=== PATIENT | male | born 1945 | race Two or more races ===

== ENCOUNTER 2016-10-23 01:25 | Inpatient (IN) | payer MEDICAID, SELFPAY ==
[2016-10-23] VITALS (24 sets, daily range): BP systolic 109–139; BP diastolic 52–92; Ht 171.4 cm; Wt 72.9 kg
[~2016-10-23] VITALS: Ht 171.4 cm; Wt 72.9 kg
[2016-10-23 02:16] LABS: BASOPHILS 0.1 % (0.0-2.0); EOSINOPHILS 0 % (0-7); HEMATOCRIT 29.1 % (42.0-54.0); HEMOGLOBIN 9.2 g/dL (13.5-17.5); IMMATURE GRANULOCYTES 0.3 % (0-5); MCH 28.2 pg (26.0-34.0); MCHC 31.6 g/dL (31.0-37.0); MCV 89.3 fL (80.0-100.0); MEAN PLATELET VOLUME 12.4 fL (7.4-10.4); MONOCYTES 5.1 % (2-11); NEUTROPHILS 81.5 % (40-80); PLATELET COUNT 138 10x3/uL (130-400); RBC 3.26 10x6/uL (4.20-6.10); RDW 12.8 % (11.5-14.5); WBC 10.5 10x3/uL (4.8-10.8)
[2016-10-23 02:20] LABS: APTT 20.8 SECONDS (22.8-39.4); INR 1.16 (0.85-1.17); PROTIME 14.6 SECONDS (11.6-15.0)
[2016-10-23 02:26] LABS: ALBUMIN 2.7 g/dL (3.4-5.0); ANION GAP 17.3 mmol/L (8-16); BILIRUBIN - TOTAL 0.5 mg/dL (0.2-1.3); CALCIUM 11.4 mg/dL (8.5-10.1); CARBON DIOXIDE 28.4 mmol/L (21.0-32.0); CREATININE - SERUM 8.6 mg/dL (0.6-1.3); POTASSIUM - SERUM 4.7 mmol/L (3.5-5.1); PROTEIN - SERUM 6.6 g/dL (6.4-8.2)
[2016-10-23 02:44] LABS: TROPONIN-I 0.133 ng/mL (0.000-0.060)
--- NOTE | 2016-10-23 04:15 | NUR ---
PT ARRIVED TO ICU. PT STATED IN FOR GI BLEEDING; VOMITING BLOOD. "FRIDAY GO THROUGH WITH COLONOSCOPY, WENT TO [place]. ATE A SPOON FULL OF BEANS; FELT FULL. WENT TO [place]. NEXT DAY WENT TO BREAKFAST ATE A COUPLE OF EGGS, FELT UPSET. STOMACH FELT LOCKED UP. FRIDAY SMALL BOWEL MOVEMENT; DRIP OF DIARRHEA. ABOUT NOON THREW UP; REGULAR THROW UP. DIDN'T WANT TO EAT AFTER. FRIDAY I TRIED TO EAT POTATO CHIP, FELT FULL. DRANK SPRITE AND STOMACH FELT UPSET; LAID DOWN. STOMACH FELT LIKE A TIGHT KNOT, WENT TO GET UP BECAUSE FELT LIKE I WAS GOING TO THROW UP; WHEN I STOOD UP I THREW UP; DARK COLORED LIKE COFFEE. VOMITED A LOT. WENT TO [facility]. 1 HOUR LATER LAYING BACK IN BED; RAISED UP FELT DIZZY; FELL HIT HEAD ON LEFT SIDE AND VOMITED BLOOD; A LOT OF BLOOD"
[2016-10-23] MEDS ORDERED: METOPROLOL TAR100 M1 PO (04:40)
[2016-10-23] MEDS ORDERED: NEPHRO-VITE RX1 TAB (04:41)
[2016-10-23] MEDS ORDERED: NEPHRO-VITE RX1 TAB PO (04:41)
[2016-10-23] MEDS ORDERED: HYTRIN10 MG PO (04:42)
[2016-10-23] MEDS ORDERED: ACULAR LS5 ML EACH EYE (04:42)
[2016-10-23] MEDS ORDERED: RENVELA800 MG PO (04:43)
[2016-10-23] MEDS ORDERED: NORVASC10 MG PO (04:43)
[2016-10-23] MEDS ORDERED: ARTIFICIAL TEAR15 ML EACH EYE (04:44)
[2016-10-23] MEDS ORDERED: ALOPHEN PILLS5 MG PO (04:45)
[2016-10-23] MEDS ORDERED: SINGULAIR10 MG PO (04:46)
[2016-10-23] MEDS ORDERED: BUMEX 1 MG TAB1 MG PO (04:46)
[2016-10-23] MEDS ORDERED: HYDRALAZINE HCL25 MG PO (04:47)
[2016-10-23] MEDS ORDERED: GAS-X80 MG PO (04:49)
--- NOTE | 2016-10-23 05:04 | NUR ---
ASSESSMENT COMPLETE. S1S2. RR UNLABORED CRACKLES BILATERALLY IN UPPER LOBES; DIMINIHED BILATERALLY IN LOWER LOBES. PERRLA 2MM; BRISK; YELLOW SCLERA. PT IN ON DIALYISIS (MWF). LEFT ARM FISTULA; BRUIT AND THRILL PRESENT. RASH ON BUTTOCKS. BRUISING AND SWELLING ON LEFT HEAD. RADIAL AND PEDAL PULSES PALPATED.
[2016-10-23 07:51] LABS: HEMATOCRIT 23.6 % (42.0-54.0); HEMOGLOBIN 7.6 g/dL (13.5-17.5)
--- NOTE | 2016-10-23 08:42 | NUR ---
H&H WAS 9 AND 29 THIS MORNING, NOW 7&23. [facility] WANTED TWO UNITS AHEAD IN CASE PT NEEDED TO BE SCOPED. CALLED LAB AND ASKED FOR UNITS TO BE READIED, PT WOULD MORE THAN LIKELY NEED TRANSFUSION TODAY. HAVE PAGED DR PENNINGTON FOR ORDERS
--- NOTE | 2016-10-23 08:59 | NUR ---
Is the patient Alert and Oriented? Yes 0 * PCP [facility] MD 0 * [facility] * Preadmission Environment Other 0 * Other Environment [facility] IN [place], [place] 0 * Facility Name [facility] 0 * ADLs Independent 0 * Additional services required to return to the preadmission environment? No 0 * Can the patient safely return to the preadmission environment? Yes 0 * Has this patient been hospitalized within the prior 30 days at any hospital? No
--- NOTE | 2016-10-23 09:01 | NUR ---
PATIENT WILL RETURN TO [facility] AT DISCHARGE. HE IS A CHRONIC DIALYIS PATIENT AND RECEIVIES DIALYSIS M/W/FR.
--- NOTE | 2016-10-23 09:01 | NUR ---
Is the patient Alert and Oriented? Yes 0 * PCP PENITENTIARY MD 0 * Pharmacy GETS MEDS FROM [facility] 0 * Preadmission Environment Other 0 * Other Environment [facility] IN [place], [place] 0 * Facility Name [facility] 0 * ADLs Independent 0 * Additional services required to return to the preadmission environment? No 0 * Can the patient safely return to the preadmission environment? Yes 0 * Has this patient been hospitalized within the prior 30 days at any hospital? No
--- NOTE | 2016-10-23 09:36 | NUR ---
FIRST UNIT PRBC INITIATED.
--- NOTE | 2016-10-23 10:17 | NUR ---
22G IV STARTED TO RIGHT LOWER FOREARM FOR PROTONIX AND NS. BLOOD ADMINISTERING IN RIGHT UPPER FOREARM. STICK X1
--- NOTE | 2016-10-23 11:14 | NUR ---
PT RESTING QUIETLY. NO DISTRESS NOTED. FIRST UNIT PRBC STILL INFUSION.
--- NOTE | 2016-10-23 12:55 | NUR ---
RAFITA WITH DR RUTH OFFICE HAD CALLED. WANTED CONSENTS FOR EGD AT 13:30 TODAY. PT WAS IN THE PROCESS OF BEING PREPPED FOR DIALYSIS AND IN MIDDLE OF BLOOD ADMINISTRATION. SHE SPOKE WITH DR RUTH, WILL SCOPE PATIENT TOMORROW. REVIEWED H&H LEVELS. IF CHANGE IN PATIENT STATUS, WILL LET THEM KNOW.
--- NOTE | 2016-10-23 14:40 | NUR ---
PT HAVING SOME PVC'S AND PAC'S ON MONITOR WHILE ON HEMODIALYSIS. WILL CONTINUE TO MONITOR AND SEE IF RESOLVES ONCE OFF.
[2016-10-23 15:00] LABS: BASOPHILS 0.1 % (0.0-2.0); EOSINOPHILS 0.2 % (0-7); IMMATURE GRANULOCYTES 0.3 % (0-5); LYMPHOCYTES 22.9 % (15-50); MCH 29.3 pg (26.0-34.0); MCHC 34.1 g/dL (31.0-37.0); MEAN PLATELET VOLUME 12.2 fL (7.4-10.4); MONOCYTES 9.7 % (2-11); NEUTROPHILS 66.8 % (40-80); PLATELET COUNT 119 10x3/uL (130-400); RDW 13.1 % (11.5-14.5); WBC 10.8 10x3/uL (4.8-10.8)
--- NOTE | 2016-10-23 15:29 | NUR ---
CALLED [facility] FOR COPY OF RECENT SCOPES. PT HAD AND EGD AND COLONOSCOPY DONE AT THE [facility] ON 10/19/[address] QUACH. THERE ARE NO RECORDS YET SCANNED INTO THE SYSTEM. TERRANCE AT [facility] WILL ATTEMPT TO LOCATE HARD COPY OF REPORTS. OUR FAX NUMBER WAS GIVEN TO HER. MEDICAL RECORD PHONE NUMBER AT [facility] IS [phone]
[2016-10-23 15:30] LABS: HEMATOCRIT 36.7 % (42.0-54.0); HEMOGLOBIN 12.5 g/dL (13.5-17.5); MCV 85.9 fL (80.0-100.0); RBC 4.27 10x6/uL (4.20-6.10)
--- NOTE | 2016-10-23 15:32 | NUR ---
MOST RECENT H&H IS 12 AND 36. PT UPDATED ON LEVELS. LET HIM KNOW WE WILL RECHECK AT 8PM. DIALYSIS SESSION IS NOW COMPLETE AND HE IS RESTING.
--- NOTE | 2016-10-23 15:48 | NUR ---
Mr. Jerome had bedside hemodialysis today from 1243 until 1525 via his left lower arm av graft. Average blood flow was 450 mls/minute. Transfused two units of prbc's during dialysis. Removed the volume from the two units of prbc's as well as a net of 1000 mls. Post vital signs were: B/P: 132/66, HR: 67, Temp: 98.0, Resps: 18. Used zero heparin.
--- NOTE | 2016-10-23 17:50 | NUR ---
PT RESTING QUIETLY. NO COMPLAINTS VOICED. BED LOW. CALL LIGHT IN REACH.
--- NOTE | 2016-10-23 19:12 | NUR ---
EGD AND COLONOSCOPY REPORTS FROM [facility] RECEIVED. PLACED ON CHART.
--- NOTE | 2016-10-23 19:30 | NUR ---
ASSESSMENT COMPLETE. S1S2. RR CLEAR UNLABORED. AAO. PERRLA. FISTULA TO LEFT ARM; BRUIT AND THRILL PRESENT (LEFT ARM RESERVE). DENIES N/V. DENIES NEED TO USE BATHROOM. WILL CONTINUE TO MONITOR.
[2016-10-23 21:09] LABS: HEMATOCRIT 33.8 % (42.0-54.0); HEMOGLOBIN 11.4 g/dL (13.5-17.5)
--- NOTE | 2016-10-23 23:20 | NUR ---
REASSESSMENT COMPLETE. NO CHANGES FROM PREVIOUS ASSESSMENT. WILL CONTINUE TO MONITOR.
[2016-10-24] VITALS (24 sets, daily range): BP systolic 111–155; BP diastolic 50–82
--- NOTE | 2016-10-24 01:13 | NUR ---
PT RESTING; EYES CLOSED. NO DISTRESS NOTED. VSS. CALL LIGHT IN REACH. NPO AT MIDNIGHT. WILL CONTINUE TO MONITOR.
--- NOTE | 2016-10-24 03:15 | NUR ---
REASSESSMENT COMPLETE. NO CHANGES FROM PREVIOUS ASSESSMENT. WILL CONTINUE TO MONITOR.
[2016-10-24 04:28] LABS: BASOPHILS 0.3 % (0.0-2.0); EOSINOPHILS 0.8 % (0-7); HEMATOCRIT 33.4 % (42.0-54.0); HEMOGLOBIN 11.2 g/dL (13.5-17.5); IMMATURE GRANULOCYTES 0.2 % (0-5); LYMPHOCYTES 27.9 % (15-50); MCH 28.9 pg (26.0-34.0); MCHC 33.5 g/dL (31.0-37.0); MCV 86.3 fL (80.0-100.0); MEAN PLATELET VOLUME 12.7 fL (7.4-10.4); MONOCYTES 10.4 % (2-11); NEUTROPHILS 60.4 % (40-80); PLATELET COUNT 111 10x3/uL (130-400); RBC 3.87 10x6/uL (4.20-6.10); RDW 13.9 % (11.5-14.5); WBC 8.8 10x3/uL (4.8-10.8)
[2016-10-24 04:42] LABS: % SATURATION 98 % (15-55); IRON 239 ug/dl (35-150); TOTAL IRON BIND CAPACITY 243 ug/dl (260-445)
[2016-10-24 04:45] LABS: UNSAT IRON BIND CAPACITY 4 ug/dl (150-375)
[2016-10-24 04:50] LABS: ANION GAP 10.4 mmol/L (8-16); CALCIUM 10.7 mg/dL (8.5-10.1); CARBON DIOXIDE 29.2 mmol/L (21.0-32.0); PHOSPHOROUS 4.4 mg/dL (2.5-4.9)
--- NOTE | 2016-10-24 04:50 | NUR ---
PT WAS GIVEN A URINAL UPON REQUEST; URINATED 75ML. PT C/O DIFFICULTY URINATING.
[2016-10-24 04:56] LABS: CREATININE - SERUM 6.2 mg/dL (0.6-1.3); POTASSIUM - SERUM 3.6 mmol/L (3.5-5.1)
--- NOTE | 2016-10-24 07:00 | NUR ---
ASSESSMENT COMPLETE PER FLOWSHEET. VOICES NO CO AT TIME.
--- NOTE | 2016-10-24 09:30 | NUR ---
EGD DONE AT BEDSIDE. VOICES NO CO AT TIME.
--- NOTE | 2016-10-24 09:43 | NUR ---
NUTRITION MONITORING & EVAL PT REMAINS NPO FOR PROCEDURE TODAY. WILL CONTINUE TO MONITOR DIET ADVANCEMENT, PT PROGRESS. RD FOLLOWING
--- NOTE | 2016-10-24 12:00 | NUR ---
FULL LIQ DIET GIVEN.
[2016-10-24 12:24] LABS: HEMATOCRIT 35.7 % (42.0-54.0); HEMOGLOBIN 11.9 g/dL (13.5-17.5)
--- NOTE | 2016-10-24 15:00 | NUR ---
SLEEPING NO DISTRESS NOTED. SR UP X 2.
--- NOTE | 2016-10-24 17:00 | NUR ---
FULL LIQUID DIET GIVEN AND CONSUMED. VOICES NO CO AT TIME.
--- NOTE | 2016-10-24 19:25 | NUR ---
ASSESSMENT COMPLETE. PATIENT RESTING IN BED WITH OFFICER AT BEDSIDE. PATIENT IS ALERT AND ORIENTED X4. LUNG SOUNDS CLEAR, S1S2 NOTED. BOWEL SOUNDS ACTIVE. PATIENT DENIES COMPLAINT AT THIS TIME, VSS, WILL CONTINUE TO MONITOR.
--- NOTE | 2016-10-24 21:10 | NUR ---
PATIENT RESTING IN BED WITH EYES CLOSED. VSS.
--- NOTE | 2016-10-24 23:00 | NUR ---
REASSESSMENT COMPLETE, NO ACUTE CHANGES. PATIET UP TO BEDSIDE COMMODE, VOIDED 300CC OF CLEAR YELLOW URINE.
[2016-10-25] VITALS (11 sets, daily range): BP systolic 117–155; BP diastolic 56–76
--- NOTE | 2016-10-25 01:10 | NUR ---
PATIENT RESTING IN BED WITH EYES CLOSED, RR NONLABORED AND EVEN. VSS.
[2016-10-25 01:51] LABS: HEMATOCRIT 31.8 % (42.0-54.0); HEMOGLOBIN 10.5 g/dL (13.5-17.5)
--- NOTE | 2016-10-25 03:10 | NUR ---
REASSESSMENT COMPLETE, NO ACUTE CHANGES. VSS, PATIENT DENIES NEED.
--- NOTE | 2016-10-25 05:00 | NUR ---
PATIENT DENIES NEEDS AT THIS TIME, VSS, WILL CONTINUE TO MONITOR.
[2016-10-25 05:16] LABS: BASOPHILS 0.3 % (0.0-2.0); EOSINOPHILS 0.8 % (0-7); HEMOGLOBIN 10.8 g/dL (13.5-17.5); IMMATURE GRANULOCYTES 0.4 % (0-5); MCH 28.7 pg (26.0-34.0); MCHC 32.7 g/dL (31.0-37.0); MCV 87.8 fL (80.0-100.0); MEAN PLATELET VOLUME 12.3 fL (7.4-10.4); MONOCYTES 12.4 % (2-11); NEUTROPHILS 61.1 % (40-80); PLATELET COUNT 126 10x3/uL (130-400); RBC 3.76 10x6/uL (4.20-6.10); RDW 13.9 % (11.5-14.5); WBC 7.3 10x3/uL (4.8-10.8)
[2016-10-25 05:23] LABS: ANION GAP 11.8 mmol/L (8-16); CALCIUM 10.4 mg/dL (8.5-10.1); CARBON DIOXIDE 28.7 mmol/L (21.0-32.0); PHOSPHOROUS 4.8 mg/dL (2.5-4.9); POTASSIUM - SERUM 3.5 mmol/L (3.5-5.1)
[2016-10-25 11:50] LABS: HEMATOCRIT 31.3 % (42.0-54.0); HEMOGLOBIN 10.5 g/dL (13.5-17.5)
--- NOTE | 2016-10-25 14:30 | NUR ---
moved to room 2109.
--- NOTE | 2016-10-25 15:23 | NUR ---
ADMIT TO FLOOR FROM ICU. HAD DIALYSIS TODAY ALREADY. IS BULLARD X4. DENIES PAIN OR SOB. DENIES DIFFICULTY SWALLOWING. HAS LUE FISTULA FOR DIALYSIS. VS WNL FOR PT. HAS GUARD WITH PT.
--- NOTE | 2016-10-25 21:08 | NUR ---
PT ASSESSMENT COMPLETED PT LAYING IN BED RESPERATIONS EVEN AND UNLABORED ON ROOM AIR GAURD IN ROOM AT BEDSIDE NO DISTRESS OBSERVED CALL LIGHT IN REACH SRX2 BED LOW AND LOCKED WILL MONITOR
[2016-10-26 00:02] VITALS: BP 129/58
[2016-10-26 01:08] LABS: HEMATOCRIT 30.8 % (42.0-54.0)
[2016-10-26 04:15] VITALS: BP 156/57
--- NOTE | 2016-10-26 04:51 | NUR ---
PT LAYING IN BED NO DISTRESS OBSERVED CALL LIGHT IN REACH SRX2 BED LOW AND LOCKED RESPERATIONS EVEN AND UNLABORED WILL MONITOR
[2016-10-26 07:41] LABS: BASOPHILS 0.4 % (0.0-2.0); EOSINOPHILS 1.5 % (0-7); HEMATOCRIT 32.1 % (42.0-54.0); HEMOGLOBIN 10.4 g/dL (13.5-17.5); IMMATURE GRANULOCYTES 0.4 % (0-5); LYMPHOCYTES 22.6 % (15-50); MCH 29.1 pg (26.0-34.0); MCHC 32.4 g/dL (31.0-37.0); MCV 89.7 fL (80.0-100.0); MEAN PLATELET VOLUME 11.7 fL (7.4-10.4); MONOCYTES 13.1 % (2-11); PLATELET COUNT 112 10x3/uL (130-400); RBC 3.58 10x6/uL (4.20-6.10); RDW 13.8 % (11.5-14.5)
[2016-10-26 07:42] LABS: WBC 5.4 10x3/uL (4.8-10.8)
[2016-10-26 08:00] LABS: ANION GAP 11.5 mmol/L (8-16); CALCIUM 9.4 mg/dL (8.5-10.1); CARBON DIOXIDE 28.6 mmol/L (21.0-32.0); CREATININE - SERUM 7.1 mg/dL (0.6-1.3); POTASSIUM - SERUM 3.1 mmol/L (3.5-5.1)
--- NOTE | 2016-10-26 08:00 | NUR ---
SECURITY SOSA REMAINS IN THIS PATIENTS ROOM. PATIENT ALERT/ORIENT X4. RIGHT FOREARM IS SALINE LOCKED. LEFT ARM FISTULA. CALL LIGHT WITHIN REACH. VOICES NO NEEDS AT THIS TIME
[2016-10-26 08:55] VITALS: BP 157/73
--- NOTE | 2016-10-26 09:49 | NUR ---
RESTS WITH EYES CLOSED. CALL LIGHT IN REACH. WILL MONITOR NEEDS.
--- NOTE | 2016-10-26 12:15 | NUR ---
Sophie BARAHONA/DR MELTON INTO SEE PATIENT. NEW ORDERS RECEIVED. PATIENT TO BE DISCHARGED TODAY.
[2016-10-26 12:28] LABS: HEMATOCRIT 32.9 % (42.0-54.0); HEMOGLOBIN 10.8 g/dL (13.5-17.5)
--- NOTE | 2016-10-26 13:00 | NUR ---
PATIENT STRAIGHT CATH PER ORDER. SCANT AMOUNT OF URINE OUT. Gabe WILLETT NOTEDIFIED.
[2016-10-26 13:42] VITALS: BP 160/67
[2016-10-26] MEDS ORDERED: PROTONIX40 MG PO (14:02)
[2016-10-26] MEDS ORDERED: SENSIPAR30 MG PO (14:03)
[2016-10-26] MEDS ORDERED: CARAFATE1 G/10 ML PO (14:03)
--- NOTE | 2016-10-26 16:16 | NUR ---
PATIENTS DISCHARGE INSTRUCTION GIVEN TO BRAIN SURGEON. PATIENT SIGNED DISCHARGE PAPERS.
[2016-10-26 17:02] VITALS: BP 156/67
--- NOTE | 2016-10-26 17:45 | NUR ---
PATIENT DISCHARGED WITH SECURITY. NURSE FROM [facility] CALLED ET TOLD THAT PATIENT WAS BEING DISCHARGED. NURSE STATED THAT THIS PATIENT HAS BEEN EXCEPTED BY [facility] DOCTOR, BUT THAT PATIENT SHOULD NOT HAVE BEEN RELEASED UNTIL HE (NURSE CALLED BACK). 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
[2016-10-27 15:08] LABS: SPE - ALBUMIN 2.9 g/dL (2.9-4.4); SPE - ALPHA-1 GLOBULIN 0.2 g/dL (0.0-0.4); SPE - ALPHA-2 GLOBULIN 0.4 g/dL (0.4-1.0); SPE - BETA GLOBULIN 0.8 g/dL (0.7-1.3); SPE - GAMMA GLOBULIN 1.4 g/dL (0.4-1.8); SPE - M-SPIKE Not Observed g/dL (Not Observed); SPE - TOTAL PROTEIN 5.8 g/dL (6.0-8.5)
== END 2016-10-26 18:07 | DRG 377 ==
LOC: D.ER 01:25 → D.ICU 03:05 → D.M2 10-25 14:40
PROVIDERS: Emergency Medicine; Internal Medicine Gastroenterology; ADMIT Internal Medicine Nephrology
PROC: 5A1D60Z (ICD-10-PCS; 2016-10-23)
PROC: 0W3P8ZZ Control Bleeding in Gastrointestinal Tract, Via Natural or Artificial Opening Endoscopic (ICD-10-PCS; 2016-10-24)
PROC: 0DB68ZX Excision of Stomach, Via Natural or Artificial Opening Endoscopic, Diagnostic (ICD-10-PCS; principal; 2016-10-24 10:30)
DX: K92.0 Hematemesis (principal); N18.6 End stage renal disease; I12.0 Hypertensive chronic kidney disease with stage 5 chronic kidney disease or end stage renal disease; N25.81 Secondary hyperparathyroidism of renal origin; Z99.2 Dependence on renal dialysis; D63.1 Anemia in chronic kidney disease; K75.9 Inflammatory liver disease, unspecified; K25.9 Gastric ulcer, unspecified as acute or chronic, without hemorrhage or perforation